=== PATIENT | male | born 1960 | race Caucasian/White ===

== ENCOUNTER → 2020-01-09 | Day surgery (SDC) | payer BC ==
[~2020-01-09] MED LIST: ACETAMINOPHEN 1000 MG/100 ML IV ONE; BACITRACIN 50,000 UNIT VIAL ONE; BUPIVACAINE HCL 0.5% INJ 30 ML VIAL INJ ONE; CLINDAMYCIN PHOS 900MG/ 50ML 50 ML IV ONE; CRESTOR10 MG PO; DEXAMETHASONE SOD PHOS INJ 4 MG/ML VIAL ONE; FENTANYL CITRATE/PF 100MCG/2 ML INJ ONE; LIDOCAINE HCL 2% LOCAL INJ 5 ML SDV VIAL INJ ONE; MIDAZOLAM HCL 2 MG/2 ML VIAL ONE; NORCO 7.5-3251 EACH PO; ONDANSETRON HCL INJ 2MG/ML 2ML 2 MG/ML VIAL ONE; PROPOFOL IV EMULSION 10 MG/ML 20 ML VIAL ONE; SEVOFLURANE INHAL SOLN 250 ML PEN BTL ONE
[2020-01-09 10:10] VITALS: BP 146/86
--- NOTE | 2020-01-15 17:58 | Operative Report ---
DATE OF PROCEDURE: 01/09/2020 SURGEON: Eleazar Rosales MD PREOPERATIVE DIAGNOSIS: Right displaced medial malleolus fracture screen of the right syndesmosis ligament. POSTOPERATIVE DIAGNOSIS: Right displaced medial malleolus fracture screen of the right syndesmosis ligament. OPERATIONS/PROCEDURES PERFORMED: The patient underwent examination under anesthesia of the right ankle, a manipulation under anesthesia of the right ankle, and open reduction and internal fixation of the medial malleolus fracture. CONVENTIONS ASSISTANT: There was no health education assistant. ANESTHESIA: General endotracheal intubation anesthesia. IV FLUIDS: Per the anesthesia record. BRIEF DESCRIPTION OF THE PATIENT'S OPERATIVE PROCEDURE: Mr. Hemphill was taken to the operating room and placed in supine position on the operating table. Following induction of general anesthesia as well as a drip, the patient's right lower extremity was examined under anesthesia. He was found to have bruising and swelling about the right ankle joint. Fluoroscopic evaluation demonstrated a displaced medial malleolus fracture. The case was begun by manipulating the patient's ankle under anesthesia to evaluate the syndesmosis. With under direct fluoroscopic evaluation, the ankle was manipulated and the syndesmosis was stressed. The patient was found to remain stable and reduced, and the ankle mortise remained reduced and centered into the tibia during this manipulation under anesthesia. The patient's lower extremity was than prepped and draped in standard surgical fashion. The case was begun by creating an incision over the medial malleolus. This incision was carried through skin only. Blunt dissection used to deepen the incision and saphenous vein was identified. They were mobilized the soft tissues and held out of the operative field with retractors during the remainder of the case. The patient's fracture site was easily identified. The fracture edges were clean and the fracture was then reduced under direct vision using a fracture reduction clamp. Care was taken to evaluate the joint anteriorly and to assess reduction of the patient's fracture at the time of surgery. This was found to restore anatomic alignment of the medial wall of the medial ankle joint. Two pins were inserted from distal to proximal transfixing the fracture in its reduced position and again the reduction was assessed directly identifying reduction of the medial wall of the medial malleolus. Two screws were then inserted distal to proximal transfixing the fracture in its reduced position, and providing compression across the fracture site. The construct was then evaluated in multiple planes using fluoroscopy. The wound was then copiously irrigated and closed in a multilayer fashion. Sterile dressings were applied and the patient was then awakened and taken to postanesthesia care unit in stable condition. MD HANNAH Arrieta/FRANCA /[id number]
== END | disposition home or self-care (01) ==
LOC: OR 05:21
PROVIDERS: ATTEND Specialist
DX: S82.52XA Displaced fracture of medial malleolus of left tibia, initial encounter for closed fracture (principal); S93.431A Sprain of tibiofibular ligament of right ankle, initial encounter; G47.33 Obstructive sleep apnea (adult) (pediatric); I10 Essential (primary) hypertension; R00.1 Bradycardia, unspecified; I44.0 Atrioventricular block, first degree; F41.9 Anxiety disorder, unspecified; W11.XXXA Fall on and from ladder, initial encounter; Y92.009 Unspecified place in unspecified non-institutional (private) residence as the place of occurrence of the external cause; Z88.0 Allergy status to penicillin; Z01.810 Encounter for preprocedural cardiovascular examination; Z68.31 Body mass index [BMI] 31.0-31.9, adult
CPT/HCPCS: 27766; 76000; 93005; C1713; J0131; J1100; J2001; J2250; J2405; J2704; J3010

== ENCOUNTER 2020-04-16 12:54 | Outpatient (RCR) | payer BC ==
[~2020-04-16 12:54] MED LIST changes: -ACETAMINOPHEN 1000 MG/100 ML IV ONE; -BACITRACIN 50,000 UNIT VIAL ONE; -BUPIVACAINE HCL 0.5% INJ 30 ML VIAL INJ ONE; -CLINDAMYCIN PHOS 900MG/ 50ML 50 ML IV ONE; -DEXAMETHASONE SOD PHOS INJ 4 MG/ML VIAL ONE; -FENTANYL CITRATE/PF 100MCG/2 ML INJ ONE; -LIDOCAINE HCL 2% LOCAL INJ 5 ML SDV VIAL INJ ONE; -MIDAZOLAM HCL 2 MG/2 ML VIAL ONE; -ONDANSETRON HCL INJ 2MG/ML 2ML 2 MG/ML VIAL ONE; -PROPOFOL IV EMULSION 10 MG/ML 20 ML VIAL ONE; -SEVOFLURANE INHAL SOLN 250 ML PEN BTL ONE
== END 2020-04-18 ==
LOC: PT 12:54
PROVIDERS: ATTEND Specialist
DX: M25.571 Pain in right ankle and joints of right foot (principal); M79.671 Pain in right foot; M62.81 Muscle weakness (generalized); R26.2 Difficulty in walking, not elsewhere classified

== ENCOUNTER 2020-04-30 08:51 | Outpatient (RCR) | payer BC | END 2020-05-19 | LOC: PT 08:51 | PROVIDERS: ATTEND Specialist | DX: M25.571 Pain in right ankle and joints of right foot (principal); M79.671 Pain in right foot; M25.671 Stiffness of right ankle, not elsewhere classified; M62.81 Muscle weakness (generalized); R26.2 Difficulty in walking, not elsewhere classified | CPT/HCPCS: 97139 ==